=== PATIENT | male | born 1945 | race Caucasian/White ===

== ENCOUNTER 2018-04-28 19:19 | Inpatient (IN) | payer OTHER ==
[2018-04-28 19:35] VITALS: BMI 28.5
--- NOTE | 2018-04-28 22:50 | PDOC ---
History of Present Illness - General Chief Complaint: Shortness of Breath Stated Complaint: SHORTNESS OF BREATH Time Seen by Provider: 04/28/18 22:41 - History of Present Illness Initial Comments: 04/28/18 23:36 The patient is a 72 year old male with a history of HTN, HLD who presents for evaluation of SOB. The patient reports a several month history of intermittent SOB while in his apartment that is relieved by walking outside. He noted an episode of SOB today that was lasting longer than normal prompting his presentation to the ED for evaluation. He notes that his symptoms have significantly improved since presentation to the ED. He otherwise denies fevers , chills, chest pain, nausea, vomiting, abdominal pain, or changes with urination or bowel movements. Past History - Past Medical History Allergies/Adverse Reactions: Allergies Allergy/AdvReac Type Severity Reaction Status Date / Time No Known Allergies Allergy Verified 04/28/18 19:36 Home Medications: Ambulatory Orders Amlodipine Besylate/Benazepril [Lotrel 5-20 mg Capsule] 1 each PO DAILY Indapamide 1.25 mg PO DAILY 04/29/18 Simvastatin 40 mg PO DAILY 04/29/18 COPD: No HTN: Yes Hypercholesterolemia: Yes - Suicide/Smoking/Psychosocial Hx Smoking History: Never smoked Hx Alcohol Use: No Drug/Substance Use Hx: No Review of Systems - Review of Systems Comments:: 04/28/18 23:42 Constitutional: No fevers, chills, fatigue, malaise HEENT: No Rhinorrhea, nasal congestion, visual changes Cardiovascular: No chest pain, syncope, palpitations, lightheadedness Respiratory: SOB. No Cough, Hemoptysis, Gastrointestinal: No Abdominal pain, Nausea, Vomiting, Constipation, Diarrhea, Melena Genitourinary: No Dysuria, Frequency, Urgency, Hesitancy, Hematuria, Flank pain Musculoskeletal: No Myalgia, arthralgia Skin: No rashes, itching, bruising, pallor Neurologic: No Headache, Dizziness, Numbness, Weakness, or Tingling Psychiatric: No Hallucinations. No SI or HI *Physical Exam - Vital Signs Last Vital Signs Temp Pulse Resp BP Pulse Ox 98.6 F 78 18 154/68 93 L 04/28/18 19:33 04/28/18 19:33 04/28/18 19:33 04/28/18 19:33 04/28/18 19:33 - Physical Exam Comments: 04/28/18 23:42 General Appearance: Nourished. No Apparent Distress HEENT: EOMI, LAUREL. No Pharyngeal Erythema, Tonsillar Exudate, Tonsillar Erythema Neck: No Cervical Lymphadenopathy Respiratory/Chest: Lungs Clear, Normal Breath Sounds. No Crackles, Rales, Rhonchi, Wheezing Cardiovascular: Regular Rhythm, Regular Rate. No Murmur, Gallops, Rubs Gastrointestinal/Abdominal: Normal Bowel Sounds, Soft. No Guarding, Rebound, Tenderness Musculoskeletal: No CVA Tenderness Extremity: Normal Capillary Refill Integumentary: Normal Color, Dry, Warm Neurologic: Fully Oriented, Alert, Normal Mood/Affect, Normal Response, Heart Score/ECG Review #1 ECG reviewed & interpreted by me at: 00:17 (T wave inversions in the anterior lateral leads, Diffuse T wave flattening.) General ECG Interpretation: Sinus Rhythm, Normal Rate, Normal Intervals ED Treatment Course - LABORATORY CBC & Chemistry Diagram: 04/28/18 23:20 04/28/18 23:20 - RADIOLOGY Radiology Studies Ordered: Category Date Time Status CHEST PA & LAT [RAD] Stat Radiology 04/28/18 22:49 Ordered Medical Decision Making - Medical Decision Making 04/28/18 23:49 The patient is a 72 year old male with a history of HTN, HLD who presents for evaluation of SOB. Differential includes but is not limited to: ACS, arrhythmia , pneumonia, anxiety, infectious, metabolic derangement. We will obtain a cbc, cmp, troponin, ekg, and chest plain film to evaluate further for possible etiologies. We will continue to monitor and reassess in the meantime. 04/29/18 06:15 CBC, cmp are unremarkable. Troponin is elevated to 0.33 and EKG demonstrates diffuse twave flattening concerning for Nstemi. We will treat the patient with aspirin, plavix and a heparin drip and the patient will require admission for further management. We discussed the case with the hospitalist team who accepted the patient for admission. *DC/Admit/Observation/Transfer Diagnosis at time of Disposition: NSTEMI (non-ST elevated myocardial infarction) - Discharge Dispostion Condition at time of disposition: Stable Decision to Admit order: Yes - Referrals - Patient Instructions - Post Discharge Activity
--- NOTE | 2018-04-28 23:23 | PDOC ---
Attending Attestation - Resident Resident Name: Rashi Baxter - ED Attending Attestation I have performed the following: I have examined & evaluated the patient, The case was reviewed & discussed with the resident, I agree w/resident's findings & plan - HPI HPI: 04/28/18 23:17 Pt comes with sob; heart racing and running in and out of his son's home since last night. Pt is visiting from [place]/ He has no destruction of his home in [place]; just visiting [place] with his . Pt used to live in [place] and moved to [place], now periodically visits. Pt admits he has anxiety attacks and that a few weeks ago he had a similar episode in [place] but anxiety lasts only a few minutes in [place]; here it has been ongoing for a day. Pt has no PMD in [place] and he has no other complaints. We will check cardiac enzymes and basic labs, CXR and EKG. - Physicial Exam PE: 04/28/18 23:23 Agree with resident exam. - Medical Decision Making 04/28/18 23:23 Labs, CXR and EKG. 04/29/18 23:18 Pt has NSTEMI; he will be treated with ASA, plavix as well as heparin. He will be admitted to telemetry. <Tisha Conner - Last Filed: 04/29/18 23:19> Attestations - Attestations 04/29/18 00:17 Documentation prepared by Edy Coffey, acting as medical professionals for Tisha Conner MD. <Edy Coffey - Last Filed: 04/29/18 00:17>
[2018-04-28 23:32] LABS: BASO % 1.2 % (0-2.0); EOS % 3.9 % (0-4.5); HEMATOCRIT 45.7 % (35.4-49); HEMOGLOBIN 15.4 GM/dL (11.7-16.9); LYMPH % 34.6 % (8-40); MCH 28.1 pg (25.7-33.7); MCHC 33.7 g/dl (32.0-35.9); MEAN CELL VOLUME 83.4 fl (80-96); MEAN PLT VOLUME 8.7 fl (7.5-11.1); MONO % 10.2 % (3.8-10.2); NEUT % 50.1 % (42.8-82.8); PLATELET COUNT 258 K/MM3 (134-434); RBC 5.48 M/mm3 (4.00-5.60); RDW 14.3 % (11.9-15.9)
[2018-04-28 23:55] LABS: ALBUMIN 3.6 g/dl (3.4-5.0); ANION GAP 10 (8-16); BILIRUBIN,TOTAL 0.7 mg/dL (0.2-1.0); BLOOD UREA NITROGEN 16 mg/dL (7-18); CALCIUM 8.5 mg/dL (8.5-10.1); CHLORIDE 104 mmol/L (98-107); CO2 27 mmol/L (21-32); GLUCOSE,RANDOM 87 mg/dL (74-106); POTASSIUM 3.2 mmol/L (3.5-5.1); SGOT/AST 21 U/L (15-37); SGPT/ALT 20 U/L (12-78); SODIUM 141 mmol/L (136-145); TOT PROT 6.3 g/dl (6.4-8.2)
[2018-04-28 23:58] LABS: ALK PHOS 56 U/L (45-117)
[2018-04-29] MEDS ORDERED: PENICILLIN V POTASSIUM 500 MG TABLET PO ONE (00:05)
[2018-04-29] MEDS ORDERED: CLOPIDOGREL BISULFATE 300 MG TABLET PO ONE (00:09)
[2018-04-29] MEDS ORDERED: ASPIRIN 81 MG CHEWABLE TABLETS PO ONE ×2 (00:09→04:09)
[2018-04-29] MEDS ORDERED: ASPIRIN 81 MG CHEWABLE TABLETS ONE (00:14)
[2018-04-29] MEDS ORDERED: CLOPIDOGREL BISULFATE 300 MG TABLET ONE (00:14)
[2018-04-29] MEDS ORDERED: HEPARIN - 25,000 UNIT in SODIUM CHLORIDE 495 ML IV SCH (00:15)
[2018-04-29] MEDS ORDERED: HEPARIN NA (PORCINE) 5,000 UNITS/ML 1ML VIAL IVPUSH PRN ×2 (00:15)
--- NOTE | 2018-04-29 01:49 | HP ---
CHIEF COMPLAINT: Shortness of breath PCP: In [place] HISTORY OF PRESENT ILLNESS: Patient is a 72 year old male with a PMHx of HTN, HLD, and sleep apnea (on CPAP but non compliant) who presented to the hospital complaining of shortness of breath for the last week that worsened yesterday around 01:00. Patient states he went outside to "get some fresh air" and states he came back in the house feeling better. However, the shortness of breath returned within minutes associated with palpitations. Patient states he is unable to walk more than a couple of feet without feeling shortness of breath. 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 Patient denies any orthopnea, chest pain, palpitations, headaches, acute vision changes, nausea, vomiting, fever, chills. ER course was notable for: (1) EKG revealed NSTEMI (2) Heparin drip started (3) Recent Travel: Denies PAST MEDICAL HISTORY: HTN, HLD, Sleep Apnea (on cpap, noncompliant) PAST SURGICAL HISTORY: Denies Social History: Smoking: Never Alcohol: Denies Drugs: Denies Family History: Mother from heart attack at age 62 Allergies: No Known Allergies Allergy (Verified 04/28/18 19:36) HOME MEDICATIONS: Home Medications Medication Instructions Recorded Amlodipine Besylate/Benazepril 1 each PO DAILY 04/29/18 [Lotrel 5-20 mg Capsule] Indapamide 1.25 mg PO DAILY 04/29/18 Simvastatin 40 mg PO 04/29/18 REVIEW OF SYSTEMS CONSTITUTIONAL: Absent: fever, chills, diaphoresis, generalized weakness, malaise, loss of appetite, weight change HEENT: Absent: rhinorrhea, nasal congestion, throat pain, throat swelling, difficulty swallowing, mouth swelling, ear pain, eye pain, visual changes CARDIOVASCULAR: Absent: chest pain, syncope, palpitations, irregular heart rate, lightheadedness , peripheral edema RESPIRATORY: shortness of breath, dyspnea with exertion Absent: cough, orthopnea, wheezing, stridor, hemoptysis GASTROINTESTINAL: Absent: abdominal pain, abdominal distension, nausea, vomiting, diarrhea, constipation, melena, hematochezia GENITOURINARY: Absent: dysuria, frequency, urgency, hesitancy, hematuria, flank pain, genital pain MUSCULOSKELETAL: Absent: myalgia, arthralgia, joint swelling, back pain, neck pain SKIN: Absent: rash, itching, pallor HEMATOLOGIC/IMMUNOLOGIC: Absent: easy bleeding, easy bruising, lymphadenopathy, frequent infections ENDOCRINE: Absent: unexplained weight gain, unexplained weight loss, heat intolerance, cold intolerance NEUROLOGIC: Absent: headache, focal weakness or paresthesias, dizziness, unsteady gait, seizure, mental status changes, bladder or bowel incontinence PSYCHIATRIC: Absent: anxiety, depression, suicidal or homicidal ideation, hallucinations. PHYSICAL EXAMINATION Vital Signs - 24 hr 04/28/18 19:33 Temperature 98.6 F Pulse Rate 78 Respiratory 18 Rate Blood Pressure 154/68 O2 Sat by Pulse 93 L Oximetry (%) GENERAL: Awake, alert, and fully oriented, in no acute distress. HEAD: Normal with no signs of trauma. EYES: Extraocular movements intact, sclera anicteric, conjunctiva clear. No lid lag. EARS, NOSE, THROAT:Oropharynx clear without exudates. Moist mucous membranes. NECK: Normal range of motion, supple without lymphadenopathy, JVD, or masses. LUNGS: On NC, fine crackles in Left upper base, No accessory muscle use. HEART: Regular rate and rhythm, normal S1 and S2 without murmur, rub or gallop. ABDOMEN: Soft, nontender, not distended, normoactive bowel sounds, no guarding, no rebound, no masses. No hepatomegaly or splenomegaly. MUSCULOSKELETAL: No CVA tenderness. UPPER EXTREMITIES: 2No peripheral edema. LOWER EXTREMITIES: No peripheral edema. NEUROLOGICAL: Cranial nerves II-XII intact. Normal speech. Normal gait. PSYCHIATRIC: Cooperative. Good eye contact. Appropriate mood and affect. SKIN: Warm, dry, normal turgor, no rashes or lesions noted, normal capillary refill. Laboratory Results - last 24 hr 04/28/18 04/28/18 23:20 23:20 WBC 8.0 RBC 5.48 Hgb 15.4 Hct 45.7 MCV 83.4 MCH 28.1 MCHC 33.7 RDW 14.3 Plt Count 258 MPV 8.7 Neutrophils % 50.1 Lymphocytes % 34.6 Monocytes % 10.2 Eosinophils % 3.9 Basophils % 1.2 Nucleated RBC % 0 Sodium 141 Potassium 3.2 L Chloride 104 Carbon Dioxide 27 Anion Gap 10 BUN 16 Creatinine 1.0 Creat Clearance w eGFR > 60 Random Glucose 87 Calcium 8.5 Total Bilirubin 0.7 AST 21 ALT 20 Alkaline Phosphatase 56 Creatine Kinase 348 H Creatine Kinase Index 1.5 CK-MB (CK-2) 5.27 H Troponin I 0.33 H Total Protein 6.3 L Albumin 3.6 IMAGES Chest X-Ray (04/28/18): No acute pathology ASSESSMENT/PLAN: Patient is a 72 year old male who presented for Shortness of breath and was found to have NSTEMI. Patient admitted for further monitoring and management. Shortness of Breath-EKG revealed possible NSTEMI -Rule out cardiac vs. respiratory etiology -Chest X-Ray negative but might need CTA to rule out PE. Patient recently traveled from [place] -Serial EKG's -Trend troponins with first one 0.33 -ECHO ordered -Lipid panel, A1C, and BNP ordered -Loading dose ASA and plavix given in ED. Continue ASA 81mg daily -Heparin drip started -Cardiology consult placed Bradycardia -Unknown baseline -Patient between high 40's to low 50's -TSH ordered -Tele monitoring HTN -Continue home medication Amlodipine/Benzapril 5-20 -Continue to monitor BP HLD -Lipid panel ordered -Continue Simvastatin 40mg Sleep Apnea -Noncompliant with CPAP -ECHO ORDERED F/E/N -On no IV fluids. Tolerates PO -Hypokalemia. replete -Sodium controlleed diet Disposition -Full code -Tele monitoring Varsha Burkett [id number] Visit type - Emergency Visit Emergency Visit: Yes ED Registration Date: 04/29/18 Care time: The patient presented to the Emergency Department on the above date and was hospitalized for further evaluation of their emergent condition. - New Patient This patient is new to me today: Yes Date on this admission: 04/29/18 - Critical Care Critical Care patient: No Hospitalist Screening - Colonoscopy Questionnaire Colonoscopy Questionnaire: Colonoscopy Questionnaire - Patient: 50 - 75 years old and never had a screening colonoscopy: Unknown History of colon or rectal polyps, or CA: Unknown History of IBD, Crohn's disease or UC: Unknown History of abdominal radiation therapy as a child: Unknown - Relative: 1 with colon or rectal CA, or polyps at age 60 or younger: Unknown Colon or rectal CA diagnosed at age 45 or younger: Unknown Multiple relatives with colon or rectal CA: Unknown - Outcome: Screening Result: Negative Screen
[2018-04-29] MEDS: HEPARIN SOD,PORK IN 0.45% NACL 25,000 UNITS/500 ML INFUS.BAG IVPB SCH (01:53)
[2018-04-29 01:55] LABS: INR 1.04 (0.82-1.09); PROTHROMBIN TIME (PATIENT) 11.7 SEC (9.7-13.0)
[2018-04-29 01:58] LABS: ACTIVATED PTT 28.9 SECONDS (26.9-34.4)
[2018-04-29] MEDS ORDERED: NITROGLYCERIN SUBLINGUAL 1/150 0.4 MG TAB SL PRN (03:19)
[2018-04-29] MEDS ORDERED: POTASSIUM CHLORIDE TABS 20 MEQ TABLET.ER (FP) PO ONE ×2 (03:20→04:08)
--- NOTE | 2018-04-29 04:59 | PN ---
Teaching Attending Note Name of Resident: Varsha Burkett ATTENDING PHYSICIAN STATEMENT I saw and evaluated the patient. Chart, data, imaging reviewed. I reviewed the resident's note and discussed the case with the resident. I agree with the resident's findings and plan as documented. SUBJECTIVE: 72 year old male with a PMHx of HTN, dyslipidemia, and sleep apnea c/o shortness of breath for about one day, associated with some chest discomfort, was sleeping when it started. Patient reports he had never been hospitalized before. Family history of CAD in mother. Pt denied having a cardiac stress test ever performed. OBJECTIVE: Last Vital Signs Temp Pulse Resp BP Pulse Ox 98.2 F 79 18 152/77 98 04/29/18 02:10 04/29/18 02:10 04/29/18 02:10 04/29/18 02:10 04/29/18 02:10 general -nad, nontoxic appearing heent- at, nc, moist oral mucosa cv- s1+s2+ rrr chest -cta b/l abdomen -soft, nt, no masses ext -no pedal edema appreciated skin- no rashes appreciated Abnormal Lab Results 04/28/18 23:20 Potassium 3.2 L Creatine Kinase 348 H CK-MB (CK-2) 5.27 H Troponin I 0.33 H Total Protein 6.3 L EKG -no acute ischemic changes seen ASSESSMENT AND PLAN: #72 yo man with NSTEMI, troponin of 0.33. Hemodynamically stable for admission to telemetry. -admit to telemetry -trend troponins -repeat ekg -load ASA 325mg PO -load plavix 300mg PO -statin -bblocker -acei -heparin drip -transthoracic echo -cardiology consult -nitroglycerin SL prn
[2018-04-29 07:11] LABS: HEMATOCRIT 46.1 % (35.4-49); HEMOGLOBIN 15.9 GM/dL (11.7-16.9); MCH 28.8 pg (25.7-33.7); MCHC 34.5 g/dl (32.0-35.9); MEAN CELL VOLUME 83.6 fl (80-96); MEAN PLT VOLUME 8.9 fl (7.5-11.1); PLATELET COUNT 251 K/MM3 (134-434); RBC 5.51 M/mm3 (4.00-5.60); RDW 14.8 % (11.9-15.9); WHITE BLOOD COUNT 7.1 K/mm3 (4.0-10.0)
[2018-04-29] MEDS ORDERED: metoPROLOL SUCCINATE 25 MG TAB.SR.24H (FP) PO ONE (07:33)
[2018-04-29 07:43] LABS: ANION GAP 8 (8-16); BLOOD UREA NITROGEN 13 mg/dL (7-18); CALCIUM 8.4 mg/dL (8.5-10.1); CHLORIDE 106 mmol/L (98-107); CO2 27 mmol/L (21-32); GLUCOSE,RANDOM 96 mg/dL (74-106); MAGNESIUM 2.2 mg/dL (1.8-2.4); POTASSIUM 3.4 mmol/L (3.5-5.1); SODIUM 141 mmol/L (136-145)
[2018-04-29 07:58] LABS: CHOLESTEROL 136 mg/dL (50-200); HDL CHOLESTEROL 55 mg/dL (40-60); N-TERMINAL BNP 49.51 pg/ml (5-125); PHOSPHOROUS 2.4 mg/dL (2.5-4.9); TRIGLYCERIDES 73 mg/dL (35-160)
[2018-04-29] MEDS ORDERED: INDAPAMIDE 1.25 MG PO SCH ×2 (10:00→17:30)
[2018-04-29] MEDS ORDERED: PATIENT'S OWN MEDICATION (NON-FORMULARY) (Amlodipine Besylate/Benazepril [Lotrel 5-20 Mg C PO SCH (10:00)
--- NOTE | 2018-04-29 10:25 | PN ---
Progress Note (short form) - Note Progress Note: Subjective: denies CP,feels better than before. was sort of breath this am . Now better. no cough . he denies any recent immobilization , or recent surgery, or pain in LE. Objective: Last Vital Signs Temp Pulse Resp BP Pulse Ox 98.2 F 69 18 148/93 97 04/29/18 08:27 04/29/18 08:27 04/29/18 08:27 04/29/18 08:27 04/29/18 08:27 Laboratory Results - last 24 hr 04/28/18 04/28/18 04/29/18 23:20 23:20 01:30 WBC 8.0 RBC 5.48 Hgb 15.4 Hct 45.7 MCV 83.4 MCH 28.1 MCHC 33.7 RDW 14.3 Plt Count 258 MPV 8.7 Neutrophils % 50.1 Lymphocytes % 34.6 Monocytes % 10.2 Eosinophils % 3.9 Basophils % 1.2 Nucleated RBC % 0 PT with INR 11.70 INR 1.04 PTT (Actin FS) 28.9 Sodium 141 Potassium 3.2 L Chloride 104 Carbon Dioxide 27 Anion Gap 10 BUN 16 Creatinine 1.0 Creat Clearance w eGFR > 60 Random Glucose 87 Hemoglobin A1c % Calcium 8.5 Phosphorus Magnesium Total Bilirubin 0.7 AST 21 ALT 20 Alkaline Phosphatase 56 Creatine Kinase 348 H Creatine Kinase Index 1.5 CK-MB (CK-2) 5.27 H Troponin I 0.33 H B-Natriuretic Peptide Total Protein 6.3 L Albumin 3.6 Triglycerides Cholesterol Total LDL Cholesterol HDL Cholesterol TSH 04/29/18 04/29/18 04/29/18 06:30 06:30 06:30 WBC 7.1 RBC 5.51 Hgb 15.9 Hct 46.1 MCV 83.6 MCH 28.8 MCHC 34.5 RDW 14.8 Plt Count 251 MPV 8.9 Neutrophils % Lymphocytes % Monocytes % Eosinophils % Basophils % Nucleated RBC % PT with INR INR PTT (Actin FS) Sodium 141 Potassium 3.4 L Chloride 106 Carbon Dioxide 27 Anion Gap 8 BUN 13 Creatinine 1.0 Creat Clearance w eGFR Random Glucose 96 Hemoglobin A1c % 5.6 Calcium 8.4 L Phosphorus 2.4 L Magnesium 2.2 Total Bilirubin AST ALT Alkaline Phosphatase Creatine Kinase Creatine Kinase Index CK-MB (CK-2) Troponin I B-Natriuretic Peptide 49.51 Total Protein Albumin Triglycerides 73 Cholesterol 136 Total LDL Cholesterol 79 HDL Cholesterol 55 TSH 1.79 04/29/18 04/29/18 06:30 06:30 WBC RBC Hgb Hct MCV MCH MCHC RDW Plt Count MPV Neutrophils % Lymphocytes % Monocytes % Eosinophils % Basophils % Nucleated RBC % PT with INR INR PTT (Actin FS) 40.4 H D Sodium Potassium Chloride Carbon Dioxide Anion Gap BUN Creatinine Creat Clearance w eGFR Random Glucose Hemoglobin A1c % Calcium Phosphorus Magnesium Total Bilirubin AST ALT Alkaline Phosphatase Creatine Kinase Creatine Kinase Index CK-MB (CK-2) Troponin I 0.40 H B-Natriuretic Peptide Total Protein Albumin Triglycerides Cholesterol Total LDL Cholesterol HDL Cholesterol TSH Physical Exam: NAD , AAOx3. CV: JVD , RRR, HR in 50s . no MRG Lungs: CTAB Abd;soft , NT, ND , NL BS Ext : 1+ edema on R leg, trace on L . no erythema or tenderness. Assessment/Plan: 72 y/o gentleman with h/o HTN, HLP, who presented with sudden onset SOB . 1- SOB , with mild hypoxia ( 93 % on RA ) . EKG with inverted TW in inferiolateral leads. possible NSTEMI. has signs of R sided heart failure on exam ( JVD and LE edema ). has S1, Q3T3 on EKG. - check CTA to r/o PE given above findings - certainly has risk factors for CAD, and NSTEMI is high in DDx - cont heparin gtt - BB, lisinopril , and statin - LDL noted. - BP control - loaded with ASA and plavix , cont asa for now - Card consult pending - repeat Trop at 12 pm . 2- HTN: cont norvasc, lisinopril and BB 3- replete phos and K HLOC . might need transfer for cath . r/o PE first Visit type - Emergency Visit Emergency Visit: Yes ED Registration Date: 04/29/18 Care time: The patient presented to the Emergency Department on the above date and was hospitalized for further evaluation of their emergent condition. - New Patient This patient is new to me today: Yes Date on this admission: 04/29/18 - Critical Care Critical Care patient: No
[2018-04-29] MEDS ORDERED: POTASSIUM PHOSPHATE 30 MM in SODIUM CHLORIDE 500 ML IVPB ONE (10:30)
--- NOTE | 2018-04-29 10:43 | CON.CARD ---
Consult Consult Specialty:: Cardiology Referred by:: Hospitalist Reason for Consultation:: Cardiac evaluation - History of Present Illness Chief Complaint: Chest pain History of Present Illness: Patient is a 72 year old male with underlying history of HTN, hypercholesterolemia who presents with shortness of breath. She complains of intermittent shortness of breath. His symptoms significantly got worse which prompted him to come into the hospital. Currently he denies chest pain, shortness of breath or palpitations. He denies paroxysmal nocturnal dyspnea or orthopnea. He denies fever or chills. He denies headache or lightheadedness. He denies nausea, vomiting, diarrhea or abdominal pain. Troponin is elevated. - History Source History Provided By: Patient, Medical Record Limitations to Obtaining History: No Limitations - Past Medical History Cardio/Vascular: Yes: HTN, Hyperlipdemia - Past Surgical History Past Surgical History: Yes: None - Alcohol/Substance Use Hx Alcohol Use: No - Smoking History Smoking history: Never smoked Home Medications - Allergies Allergies/Adverse Reactions: Allergies Allergy/AdvReac Type Severity Reaction Status Date / Time No Known Allergies Allergy Verified 04/28/18 19:36 - Home Medications Home Medications: Ambulatory Orders Amlodipine Besylate/Benazepril [Lotrel 5-20 mg Capsule] 1 each PO DAILY Indapamide 1.25 mg PO DAILY 04/29/18 Simvastatin 40 mg PO DAILY 04/29/18 Family Disease History - Family Disease History Family Disease History: Heart Disease: Mother Review of Systems - Review of Systems Constitutional: denies: Chills, Fever Cardiovascular: reports: Shortness of Breath. denies: Chest Pain, Palpitations Respiratory: reports: SOB, SOB on Exertion. denies: Cough, Orthopnea, PND, Wheezing Gastrointestinal: denies: Abdominal Pain, Constipation, Diarrhea, Melena, Nausea , Rectal Bleeding, Vomiting Musculoskeletal: denies: Joint Pain Neurological: denies: Dizziness, Headache, Seizure, Syncope, Weakness Vital Signs: Vital Signs Temperature 98.2 F 04/29/18 08:27 Pulse Rate 69 04/29/18 08:27 Respiratory Rate 18 04/29/18 08:27 Blood Pressure 148/93 04/29/18 08:27 O2 Sat by Pulse Oximetry (%) 97 04/29/18 08:27 Constitutional: Yes: Well Nourished HENT: Yes: Atraumatic Neck: Yes: Supple Respiratory: Yes: CTA Bilaterally Gastrointestinal: Yes: Normal Bowel Sounds, Soft. No: Tenderness Cardiovascular: Yes: Regular Rate and Rhythm JVD: No Carotid Bruit: No PMI: Non-Displaced Heart Sounds: Yes: S1. No: Gallop Murmur: No: Systolic Murmur, Diastolic Murmur Edema: No - Other Data Labs, Other Data: CBC, BMP 04/29/18 06:30 04/29/18 06:30 INR, PTT INR 1.04 (0.82-1.09) 04/29/18 01:30 Troponin, BNP 04/28/18 04/29/18 04/29/18 23:20 06:30 06:30 Troponin I 0.33 H 0.40 H B-Natriuretic Peptide 49.51 Laboratory Results - last 24 hr 04/28/18 04/28/18 04/29/18 23:20 23:20 01:30 WBC 8.0 RBC 5.48 Hgb 15.4 Hct 45.7 MCV 83.4 MCH 28.1 MCHC 33.7 RDW 14.3 Plt Count 258 MPV 8.7 Neutrophils % 50.1 Lymphocytes % 34.6 Monocytes % 10.2 Eosinophils % 3.9 Basophils % 1.2 Nucleated RBC % 0 PT with INR 11.70 INR 1.04 PTT (Actin FS) 28.9 Sodium 141 Potassium 3.2 L Chloride 104 Carbon Dioxide 27 Anion Gap 10 BUN 16 Creatinine 1.0 Creat Clearance w eGFR > 60 Random Glucose 87 Hemoglobin A1c % Calcium 8.5 Phosphorus Magnesium Total Bilirubin 0.7 AST 21 ALT 20 Alkaline Phosphatase 56 Creatine Kinase 348 H Creatine Kinase Index 1.5 CK-MB (CK-2) 5.27 H Troponin I 0.33 H B-Natriuretic Peptide Total Protein 6.3 L Albumin 3.6 Triglycerides Cholesterol Total LDL Cholesterol HDL Cholesterol TSH 04/29/18 04/29/18 04/29/18 06:30 06:30 06:30 WBC 7.1 RBC 5.51 Hgb 15.9 Hct 46.1 MCV 83.6 MCH 28.8 MCHC 34.5 RDW 14.8 Plt Count 251 MPV 8.9 Neutrophils % Lymphocytes % Monocytes % Eosinophils % Basophils % Nucleated RBC % PT with INR INR PTT (Actin FS) Sodium 141 Potassium 3.4 L Chloride 106 Carbon Dioxide 27 Anion Gap 8 BUN 13 Creatinine 1.0 Creat Clearance w eGFR Random Glucose 96 Hemoglobin A1c % 5.6 Calcium 8.4 L Phosphorus 2.4 L Magnesium 2.2 Total Bilirubin AST ALT Alkaline Phosphatase Creatine Kinase Creatine Kinase Index CK-MB (CK-2) Troponin I B-Natriuretic Peptide 49.51 Total Protein Albumin Triglycerides 73 Cholesterol 136 Total LDL Cholesterol 79 HDL Cholesterol 55 TSH 1.79 04/29/18 04/29/18 04/29/18 06:30 06:30 12:09 WBC RBC Hgb Hct MCV MCH MCHC RDW Plt Count MPV Neutrophils % Lymphocytes % Monocytes % Eosinophils % Basophils % Nucleated RBC % PT with INR INR PTT (Actin FS) 40.4 H D Sodium Potassium Chloride Carbon Dioxide Anion Gap BUN Creatinine Creat Clearance w eGFR Random Glucose Hemoglobin A1c % Calcium Phosphorus Magnesium Total Bilirubin AST ALT Alkaline Phosphatase Creatine Kinase 282 Creatine Kinase Index 1.7 CK-MB (CK-2) 4.932 H Troponin I 0.40 H 0.34 H B-Natriuretic Peptide Total Protein Albumin Triglycerides Cholesterol Total LDL Cholesterol HDL Cholesterol TSH 04/29/18 04/29/18 12:09 17:50 WBC RBC Hgb Hct MCV MCH MCHC RDW Plt Count MPV Neutrophils % Lymphocytes % Monocytes % Eosinophils % Basophils % Nucleated RBC % PT with INR INR PTT (Actin FS) 62.3 H D Sodium Potassium Chloride Carbon Dioxide Anion Gap BUN Creatinine Creat Clearance w eGFR Random Glucose Hemoglobin A1c % Calcium Phosphorus Magnesium Total Bilirubin AST ALT Alkaline Phosphatase Creatine Kinase 296 Creatine Kinase Index 1.7 CK-MB (CK-2) 5.052 H Troponin I 0.42 H B-Natriuretic Peptide Total Protein Albumin Triglycerides Cholesterol Total LDL Cholesterol HDL Cholesterol TSH ?Ectopic atrial rhythm with T wave inversion in anterior lead Imaging - Results Chest X-ray: Report Reviewed (Unremarkable) Cat Scan: Report Reviewed (Chest CTA no PTE) EKG: Report Reviewed Problem List - Problems (1) HTN (hypertension) Code(s): I10 - ESSENTIAL (PRIMARY) HYPERTENSION Qualifiers: Hypertension type: essential hypertension Qualified Code(s): I10 - Essential (primary) hypertension (2) Hypercholesterolemia Code(s): E78.00 - PURE HYPERCHOLESTEROLEMIA, UNSPECIFIED (3) NSTEMI (non-ST elevated myocardial infarction) Code(s): I21.4 - NON-ST ELEVATION (NSTEMI) MYOCARDIAL INFARCTION (4) Abnormal ECG Code(s): R94.31 - ABNORMAL ELECTROCARDIOGRAM [ECG] [EKG] Assessment/Plan 1. Clinical presentation compatible with NSTEMI 2. HTN 3. Hypercholesterolemia PLAN: 1. Heparin protocol 2. Continue Metoprolol, Lisinopril and Amlodipine 3. ASA +/- Plavix 4. Atorvastatin 5. Transthoracic echocardiography to assess LV/RV and valvular function in AM 6. Consider cardiac catheterization/coronary angiography Further plans are to follow. Patient was seen, examined, counseled and chart reviewed for total 40 min Riley Tan MD
[2018-04-29] MEDS: amLODIPine BESYLATE 5 MG TABLET (FP) PO SCH (11:48)
[2018-04-29] MEDS: LISINOPRIL 20 MG TABLET (FP) PO SCH (11:48)
[2018-04-29] MEDS: ASPIRIN 81 MG CHEWABLE TABLETS PO SCH (11:49)
[2018-04-29] MEDS ORDERED: PNEUMOC 13-VAL CONJ-DIP CRM/PF 0.5 ML DISP.SYRIN IM ONE (15:00)
[2018-04-29] MEDS ORDERED: FUROSEMIDE 40 MG/4 ML INJECTABLE VIAL IVPUSH ONE (15:09)
[2018-04-29] MEDS ORDERED: ALPRAZolam 0.25 MG TABLET PO ONE ×2 (17:38→21:45)
[2018-04-29] MEDS: CLOPIDOGREL BISULFATE 75 MG TABLET (FP) PO SCH (21:39)
[2018-04-29] MEDS ORDERED: ATORVASTATIN CA 20 MG TABLET (FP) PO SCH (22:00)
--- NOTE | 2018-04-29 22:06 | EKG ---
Test Reason : Blood Pressure : / mmHG Vent. Rate : 058 BPM Atrial Rate : 058 BPM P-R Int : 172 ms QRS Dur : 098 ms QT Int : 458 ms P-R-T Axes : 000 012 -12 degrees QTc Int : 449 ms SINUS BRADYCARDIA NONSPECIFIC T WAVE ABNORMALITY ABNORMAL ECG NO PREVIOUS ECGS AVAILABLE Confirmed by WAYNE GRAY MD ([id number]) on 04/29/2018 10:06:07 PM Referred By: Confirmed By:WAYNE GRAY MD
--- NOTE | 2018-04-29 22:08 | EKG ---
Test Reason : Blood Pressure : / mmHG Vent. Rate : 049 BPM Atrial Rate : 049 BPM P-R Int : 170 ms QRS Dur : 096 ms QT Int : 470 ms P-R-T Axes : -55 017 -62 degrees QTc Int : 424 ms UNUSUAL P AXIS, POSSIBLE ECTOPIC ATRIAL BRADYCARDIA ABNORMAL ECG NO PREVIOUS ECGS AVAILABLE Confirmed by WAYNE GRAY MD ([id number]) on 04/29/2018 10:08:12 PM Referred By: Confirmed By:WAYNE GRAY MD
[2018-04-30] MEDS: HEPARIN SOD,PORK IN 0.45% NACL 25,000 UNITS/500 ML INFUS.BAG IVPB SCH (03:08)
[2018-04-30 06:20] LABS: EOS % 3.4 % (0-4.5); HEMATOCRIT 45.2 % (35.4-49); HEMOGLOBIN 15.7 GM/dL (11.7-16.9); LYMPH % 24.4 % (8-40); MCHC 34.6 g/dl (32.0-35.9); MEAN CELL VOLUME 83.7 fl (80-96); MEAN PLT VOLUME 8.6 fl (7.5-11.1); NEUT % 61.2 % (42.8-82.8); PLATELET COUNT 235 K/MM3 (134-434); RBC 5.41 M/mm3 (4.00-5.60); RDW 14.7 % (11.9-15.9)
[2018-04-30 06:52] LABS: ANION GAP 10 (8-16); BLOOD UREA NITROGEN 14 mg/dL (7-18); CALCIUM 8.2 mg/dL (8.5-10.1); CHLORIDE 106 mmol/L (98-107); CO2 28 mmol/L (21-32); GLUCOSE,RANDOM 93 mg/dL (74-106); MAGNESIUM 2.3 mg/dL (1.8-2.4); POTASSIUM 3.5 mmol/L (3.5-5.1); SODIUM 144 mmol/L (136-145)
[2018-04-30 06:56] LABS: CREATININE 1.1 mg/dL (0.7-1.3); PHOSPHOROUS 3.3 mg/dL (2.5-4.9)
--- NOTE | 2018-04-30 09:37 | PN ---
Progress Note, Physician Chief Complaint: Not in distress History of Present Illness: Patient was seen and examined. Awake and alert. Chart was reviewed Denies chest pain, SOB or palpitations Discussed indication for cardiac catheterization/coronary angiography - Current Medication List Current Medications: Active Medications Amlodipine Besylate (Norvasc -) 5 mg PO DAILY [facility] Last Admin: 04/29/18 11:48 Dose: 5 mg Aspirin (Asa -) 81 mg PO DAILY [facility] Last Admin: 04/29/18 11:49 Dose: 81 mg Atorvastatin Calcium (Lipitor -) 20 mg PO HS [facility] Last Admin: 04/29/18 21:39 Dose: 20 mg Clopidogrel Bisulfate (Plavix -) 75 mg PO DAILY [facility] Last Admin: 04/29/18 21:39 Dose: 75 mg Heparin Sodium (Porcine) (Heparin -) 1,000 unit IVPUSH PRN PRN PRN Reason: Heparin Last Admin: 04/29/18 08:23 Dose: 1,000 unit Heparin Sodium (Porcine) (Heparin -) 5,000 unit IVPUSH PRN PRN PRN Reason: Heparin HEPARIN SOD,PORK IN 0.45% NACL (Heparin-1/2ns 25,000 Units/500) 25,000 units in 500 mls @ 20 mls/hr IVPB TITR [facility]; Protocol Last Admin: 04/30/18 03:08 Dose: 1,100 unit/hr, 22 mls/hr Lisinopril (Prinivil) 20 mg PO DAILY [facility] Last Admin: 04/29/18 11:48 Dose: 20 mg Metoprolol Succinate (Toprol Xl -) 25 mg PO DAILY [facility] Nitroglycerin (Nitrostat -) 0.4 mg SL Q5M PRN PRN Reason: FOR CHEST PAIN Non-Formulary Medication (Indapamide [Indapamide]) 1.25 mg PO DAILY [facility] Last Admin: 04/29/18 17:57 Dose: 1.25 mg - Objective Vital Signs: Vital Signs Temperature 97.7 F 04/30/18 05:00 Pulse Rate 43 L 04/30/18 05:00 Respiratory Rate 16 04/30/18 05:00 Blood Pressure 109/64 04/30/18 05:00 O2 Sat by Pulse Oximetry (%) 97 04/29/18 21:00 Constitutional: Yes: Well Nourished HENT: Yes: Atraumatic Neck: Yes: Supple Cardiovascular: Yes: Regular Rate and Rhythm, S1, S2. No: Murmur Respiratory: Yes: CTA Bilaterally Gastrointestinal: Yes: Normal Bowel Sounds, Soft. No: Tenderness Edema: No Additional Findings/Remarks: - Review of Systems Constitutional: denies: Chills, Fever Cardiovascular: denies: Shortness of Breath. denies: Chest Pain, Palpitations Respiratory: denies: SOB, SOB on Exertion. denies: Cough, Orthopnea, PND, Wheezing Gastrointestinal: denies: Abdominal Pain, Constipation, Diarrhea, Melena, Nausea , Rectal Bleeding, Vomiting Musculoskeletal: denies: Joint Pain Neurological: denies: Dizziness, Headache, Seizure, Syncope, Weakness Labs: CBC, BMP 04/30/18 06:00 04/30/18 06:00 INR, PTT INR 1.04 (0.82-1.09) 04/29/18 01:30 Laboratory Results - last 24 hr 04/29/18 04/29/18 04/29/18 12:09 12:09 17:50 WBC RBC Hgb Hct MCV MCH MCHC RDW Plt Count MPV Neutrophils % Lymphocytes % Monocytes % Eosinophils % Basophils % Nucleated RBC % PTT (Actin FS) 62.3 H D Sodium Potassium Chloride Carbon Dioxide Anion Gap BUN Creatinine Random Glucose Calcium Phosphorus Magnesium Creatine Kinase 282 296 Creatine Kinase Index 1.7 1.7 CK-MB (CK-2) 4.932 H 5.052 H Troponin I 0.34 H 0.42 H 04/30/18 04/30/18 04/30/18 06:00 06:00 06:00 WBC 9.0 RBC 5.41 Hgb 15.7 Hct 45.2 MCV 83.7 MCH 29.0 MCHC 34.6 RDW 14.7 Plt Count 235 MPV 8.6 Neutrophils % 61.2 D Lymphocytes % 24.4 D Monocytes % 10.0 Eosinophils % 3.4 Basophils % 1.0 Nucleated RBC % 0 PTT (Actin FS) Sodium 144 Potassium 3.5 Chloride 106 Carbon Dioxide 28 Anion Gap 10 BUN 14 Creatinine 1.1 Random Glucose 93 Calcium 8.2 L Phosphorus 3.3 D Magnesium 2.3 Creatine Kinase 262 Creatine Kinase Index 1.6 CK-MB (CK-2) 4.332 H Troponin I 0.31 H Problem List - Problems (1) HTN (hypertension) Code(s): I10 - ESSENTIAL (PRIMARY) HYPERTENSION Qualifiers: Hypertension type: essential hypertension Qualified Code(s): I10 - Essential (primary) hypertension (2) Hypercholesterolemia Code(s): E78.00 - PURE HYPERCHOLESTEROLEMIA, UNSPECIFIED (3) NSTEMI (non-ST elevated myocardial infarction) Code(s): I21.4 - NON-ST ELEVATION (NSTEMI) MYOCARDIAL INFARCTION (4) Abnormal ECG Code(s): R94.31 - ABNORMAL ELECTROCARDIOGRAM [ECG] [EKG] Assessment/Plan 1. Clinical presentation compatible with NSTEMI 2. HTN 3. Hypercholesterolemia PLAN: 1. Heparin protocol 2. Continue Metoprolol, Lisinopril and Amlodipine 3. ASA +/- Plavix 4. Atorvastatin 5. Transthoracic echocardiography to assess LV/RV and valvular function 6. To make arrangement for cardiac catheterization/coronary angiography at [facility]. Explained to patient regarding risks/benefits and procedure. Keep NPO lunch and plan for the afternoon today. Further plans are to follow. Patient was seen, examined, counseled and chart reviewed for total 35 min Riley Tan MD
[2018-04-30] MEDS: LISINOPRIL 20 MG TABLET (FP) PO SCH (09:56)
[2018-04-30] MEDS: amLODIPine BESYLATE 5 MG TABLET (FP) PO SCH (09:56)
[2018-04-30] MEDS: ASPIRIN 81 MG CHEWABLE TABLETS PO SCH (09:56)
[2018-04-30] MEDS: CLOPIDOGREL BISULFATE 75 MG TABLET (FP) PO SCH (09:56)
[2018-04-30] MEDS ORDERED: metoPROLOL SUCCINATE 25 MG TAB.SR.24H (FP) PO SCH (10:00)
[2018-04-30 13:17] VITALS: BP 134/84; PULSE 53; TEMP 98.1
--- NOTE | 2018-04-30 16:45 | DS ---
Physical Exam: Patient was not seen by this provider prior to discharge. Vital Signs Period Temp Pulse Resp BP Sys/Saab Pulse Ox Last 24 Hr 97.7 F-98.7 F 43-56 16-20 109-140/56-84 97-97 Laboratory Results - last 24 hr 04/29/18 04/30/18 04/30/18 17:50 06:00 06:00 WBC 9.0 RBC 5.41 Hgb 15.7 Hct 45.2 MCV 83.7 MCH 29.0 MCHC 34.6 RDW 14.7 Plt Count 235 MPV 8.6 Neutrophils % 61.2 D Lymphocytes % 24.4 D Monocytes % 10.0 Eosinophils % 3.4 Basophils % 1.0 Nucleated RBC % 0 PTT (Actin FS) Sodium 144 Potassium 3.5 Chloride 106 Carbon Dioxide 28 Anion Gap 10 BUN 14 Creatinine 1.1 Random Glucose 93 Calcium 8.2 L Phosphorus 3.3 D Magnesium 2.3 Creatine Kinase 296 Creatine Kinase Index 1.7 CK-MB (CK-2) 5.052 H Troponin I 0.42 H 04/30/18 04/30/18 06:00 07:30 WBC RBC Hgb Hct MCV MCH MCHC RDW Plt Count MPV Neutrophils % Lymphocytes % Monocytes % Eosinophils % Basophils % Nucleated RBC % PTT (Actin FS) 77.6 H Sodium Potassium Chloride Carbon Dioxide Anion Gap BUN Creatinine Random Glucose Calcium Phosphorus Magnesium Creatine Kinase 262 Creatine Kinase Index 1.6 CK-MB (CK-2) 4.332 H Troponin I 0.31 H HOSPITAL COURSE: Date of Admission:04/29/18 Date of Discharge: 04/30/18 72 year-old male with a PMH significant for HTN, HLD, and sleep apnea. Admitted for SOB and palpitations and found to have NSTEMI. NSTEMI --troponins 0.33-->0.42-->0.31 --ECG with inverted t-waves in inferolateral leads --signs of right-sided heart failure on exam (JVD, LE edema) --heparin drip, ASA, Plavix --Toprol XL, amlodipine, Lipitor --CTA negative for PE Hypertension --BP stable --continue lisinopril, Toprol XL, amlodipine Dispo: transfer to [facility] for cardiac catheterization. Minutes to complete discharge: 35 Discharge Summary Reason For Visit: NON ST ELEVATION (NSTEMI) Condition: Stable - Instructions Disposition: TRANSFER ACUTE CARE/OTHER HOSP - Home Medications Comprehensive Discharge Medication List: Ambulatory Orders Amlodipine Besylate/Benazepril [Lotrel 5-20 mg Capsule] 1 each PO DAILY Indapamide 1.25 mg PO DAILY 04/29/18 Simvastatin 40 mg PO DAILY 04/29/18 This patient is new to me today: Yes Date on this admission: 04/30/18 Emergency Visit: Yes ED Registration Date: 04/29/18 Care time: The patient presented to the Emergency Department on the above date and was hospitalized for further evaluation of their emergent condition. Critical Care patient: No - Discharge Referral Referred to [facility] Med P.C.: No
== END 2018-04-30 13:15 | disposition short-term general hospital (02) | DRG 282 ==
LOC: JER 19:19 → JERBED 04-29 00:26 → J4W 04-29 05:42
PROVIDERS: ADMIT Internal Medicine; ATTEND Nurse Practitioner Acute Care
DX: I21.4 Non-ST elevation (NSTEMI) myocardial infarction (principal); R00.1 Bradycardia, unspecified; I10 Essential (primary) hypertension; E78.5 Hyperlipidemia, unspecified; G47.30 Sleep apnea, unspecified; R94.31 Abnormal electrocardiogram [ECG] [EKG]; I50.810 Right heart failure, unspecified
CPT/HCPCS: 36415; 71046-TC-FY; 71275-TC; 80048; 80053; 80061; 82550; 82553; 83036; 83721; 83735; 83880; 84100; 84443; 84484; 85025; 85027; 85610; 85730; 90670; 93005; 93010; 93306-TC; 99283-25; J1644